=== PATIENT | male | born 1955 | race Caucasian/White ===

== ENCOUNTER → 2018-10-19 14:30 | Outpatient (CLI) | payer MEDICAID, SELFPAY ==
--- NOTE | 2018-10-19 14:32 | RAD_ITS ---
STUDY: X-RAY - ORBITS REASON FOR EXAM: Male, 63 years old. This study is being performed as a clearance examination for exclusion of orbital metal, prior to the performance of an MRI examination. TECHNIQUE: 2 view(s) of the orbits were obtained. COMPARISON: None. FINDINGS: Normal bilateral orbits without a metallic orbital foreign body. Normal visualized facial bones. Normal paranasal sinuses. The soft tissue structures are unremarkable. RAD/Orbits for Foreign Body IMPRESSION: No demonstrated metallic orbital foreign body. The patient is cleared for an MRI examination. Electronically Signed: Addison Godinez MD at 15:01 EST , Service support ,
--- NOTE | 2018-10-19 14:38 | MRI_ITS ---
STUDY: MRI LEFT SHOULDER REASON FOR EXAM: Male, 63 years old. Pain. Limited range of motion. TECHNIQUE: Standardized fat and water weighted pulse sequences were obtained in all 3 orthogonal planes. COMPARISON: None. FINDINGS: Tendinosis with thickening of the distal supraspinatus and partial thickness distal tendon tears, series 5 images 09/09 and . There is infraspinatus tendinosis with tendon thickening, but without a demonstrated tendon tear. Normal subscapularis tendon. Normal teres minor tendon. Normal supraspinatus muscle. Normal infraspinatus muscle. Normal subscapularis muscle. Normal teres minor muscle. There is a moderate volume joint effusion of the glenohumeral joint. 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 Normal humeral head and visualized proximal humerus. Normal biceps labral complex. Normal intracapsular long biceps tendon. There is tear of the superior labrum adjacent to the biceps anchor, series 4 images 06/10 through 08/10 Normal capsulo- ligamentous complex. Normal rotator interval. There is mild osteoarthritis of the acromioclavicular articulation. There is a Type II morphology (curved) acromion, with a neutral orientation. There is mild edema of the subacromial bursa, consistent with mild subacromial-subdeltoid bursitis. Normal visualized coracohumeral and coracoacromial ligaments. Normal quadrilateral space. Normal axillary space. Normal deltoid muscle. Normal trapezius muscle. MRI/Upper Ext Joint Only(Routine) IMPRESSION: Tendinosis with partial tearing of the supraspinatus. No full-thickness rotator cuff tear. SLAP lesion with tear of the superior labrum. Glenohumeral and acromioclavicular arthrosis. Joint effusion. Electronically Signed: Kendall Portillo MD at 15:47 EST , Service support ,
== END ==
PROVIDERS: Family Provider Family Medicine; PCP Family Medicine; Referring Provider Family Medicine; Visit Provider Family Medicine
DX: M25.512 Pain in left shoulder (principal)
CPT/HCPCS: 70030; 73221

== ENCOUNTER 2019-08-23 11:51 | Day surgery (SDC) | payer MEDICAID, SELFPAY ==
[2019-08-04 15:01] VITALS: BMI 25.3
--- NOTE | 2019-08-08 12:34 | HP_ITS ---
Intake Vital Signs 08/04/19 Body Mass Index (BMI) 25.3 08/04/19 Height 6 ft 1 in 08/04/19 Weight: 195 lb 08/04/19 Body Mass Index (BMI) 25.7 08/04/19 Blood Pressure 137/89 H 08/04/19 Blood Pressure Location Rt brachial 08/04/19 Blood Pressure Position Sitting Intake Visit Reasons: Rt Inguinal Hernia Yarn Conditioner Required: No Is patient in pain?: No Allergies No Known Allergies Allergy (Verified 08/04/19 14:58) Medications lovastatin 40 mg tablet 40 mg PO DAILY 11/04/18 [History Confirmed 11/04/18] PFSH Medical History Arthritis (Acute) Renal stones (Acute) Surgical History s/p penis surgery (Acute) Family History Mother Breast cancer Father Kidney disease Social History (Updated 08/08/19 @ 12:34 by Frederic Sharma MD) Smoking Status: Never smoker alcohol intake: never HPI HPI HPI: JULIETA LA, is a 64 M who presents to the office today for HPI HPI Surgical H&P: Yes HPI: JULIETA LA, is a 64 M who presents to the office today for Evaluation of a right inguinal hernia patient has noticed a bulge in his right inguinal areaHe has not had a lot of tenderness with it but it is becoming more noticeable. 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 He has no change in his bowel or bladder habits. ROS General General: No weight change, appetite, fatigue, colon cancer, breast cancer or weakness HEENT HEENT: No difficulty swallowing, eye injury, eye surgery, swollen glands or hoarseness Endo Endocrine: No thyroid disease, diabetes mellitus, thyroid cancer, Hair loss, heat intolerance or cold intolerance Skin Skin: No rash or changing moles Breast Breast: No left breast lump, right breast lump, nipple discharge, breast pain, abnormal mammogram, abnormal US or breast enlargement Musc Musculoskeletal: Yes arthritis; no back problems, rheumatoid arthritis, gout or joint pain Cardio Cardiovascular: No murmur, pacemaker, heart disease, atrial fibrillation, high blood pressure, heart attack, heart stent, palpitations, shortness of breat with exertion or chest pain Psych Psychiatric: No depression, anxiety or hearing voices Resp Respiratory: No shortness of breath, No sleep apnea, No cough, No COPD, No asthma, No emphysema, No wheezing Gastro Gastrointestinal: No abdominal pain, No nausea or vomiting, No diarrhea, No constipation, No blood in stool, No acid reflux, No hemorrhoids, No ulcers, No gallbladder problem, No black,tarry stools [place] Hematologic: No blood thinners, No blood disorders, No bleeding, No anemia, No blood clots Neuro Neurologic: No system reviewed and no additional complaints, except as docu, No as per HPI, No abnormal walking, No abnormal hearing, No abnormal movements, No abnormal speech, No behavioral changes, No burning sensations, No confusion, No seizure-like activity, No unsteadiness, No dizziness, No localized weakness, No frequent falls, No headache(s), No lack of coordination, No loss of vision, No memory loss, No numbness, No other visual disturbances, No radiating pain, No restless legs, No sensory deficit, No fainting, No tingling, No tremor(s), No weakness, No other Exam Const General: no acute distress, well developed, well hydrated Orientation: oriented to person, oriented to place, oriented to time [facility] Head: normocephalic, atraumatic Ears: external ears normal Mouth: moist mucous membranes Eyes Sclera: sclerae normal Pupils: normal by confrontation Neck Neck: no lymphadenopathy noted Neck mass: No Thyroid: thyroid normal, symmetrical Chest Chest palpation & inspection: normal inspection of the chest Breast Palpation: No nipple discharge Resp Effort & Inspection: normal respiratory effort Auscultation: clear to auscultation bilaterally Percussion: percussion normal Cardio Rate: regular rate Rhythm: regular rhythm Heart Sounds: no murmurs GI Palpation: soft, no hepatosplenomegaly, no masses, tender Rectal Exam: other Other: Reducible right anal hernia is identified. Rectal exam deferred. Extrem General: normal to inspection, no clubbing, cyanosis or edema Assessment & Plan Problems 1. Right inguinal hernia K40.90 Plan My plan is to perform a Robotic assisted laparoscopic right inguinal hernia repair with mesh. The planned surgical procedure was discussed extensively with the patient. The risks, benefits, anticipated outcomes and possible complication were mentioned. The patient understands that all hernia repair surgery has a chance of recurrence and/or chronic post-operative pain. My staff has also explained the procedure in understandable terms and the patient was given the option to take printed material concerning the planned procedure. The patient had the opportunity to ask questions concerning the planned procedure. The patient freely consents to the planned procedure. Coding Level of Care Code Off vis,new,level 3 Diagnoses Right inguinal hernia K40.90 08/08/19 1234 <Electronically signed by Frederic johnston MD> Date _ Frederic Sharma MD I have re-examined the patient. There are no clinical changes since date of exam.
--- NOTE | 2019-08-23 12:07 | EKG12_ITS ---
Test Reason : PRE OP Blood Pressure : / mmHG Vent. Rate : 067 BPM Atrial Rate : 067 BPM P-R Int : 170 ms QRS Dur : 108 ms QT Int : 410 ms P-R-T Axes : 033 090 038 degrees QTc Int : 433 ms Normal sinus rhythm Normal ECG No previous ECGs available Confirmed by ARGENTINA SILVA ([id number]), film editor RANDALL HINTON ([id number]) on 08/28/2019 10:42:42 AM Referred By: Argentina Sharma Confirmed By:ARGENTINA SILVA
[2019-08-23 12:21] VITALS: BP 141/93; PULSE 72; RESP 16; TEMP 36.7; O2SAT 97; BMI 26.0
[2019-08-23] MEDS: Lactated Ringers 1,000 ML 100 ML IV ×2 (12:27→12:29)
--- NOTE | 2019-08-23 14:18 | PCM.OPRPT ---
Problem List (1) Right inguinal hernia Status: Acute Report of Operation Date of Procedure: 08/23/19 Pre-Operative Diagnosis: Right inguinal hernia Post-Operative Diagnosis: Same Surgery/Procedure Performed:: Robotic assisted lap right inguinal hernia repair with mesh Type of Anesthesia:: General Anesthesiologist: Maurilio Lewis Estimated Blood Loss (mL): < 25 Description of Procedure: She was brought into the operating room. Placed in the supine position. Under excellent general trach intubation the abdomen was sterilely prepped and draped in usual fashion. Local was injected above the umbilicus dissection was carried down Blanco was used to grab the fascia varies needle was placed inside the abdomen the abdomen was insufflated to 15 torr. #8 trocar was placed without difficulty. Under direct visualization it was flank by 2 #8 trochars. The bed was placed in the headdown position rotated slightly to the left. Robot was then brought in and docked appropriately. I scored the peritoneum on the right dissected down to Viktor's ligament and then dissected further laterally. I dissected the cord and vessel structures free and then dissected further laterally. Placed a large 3D max mesh into the wound. I tacked it to Viktor's ligament with an 0 Vicryl suture. The mesh laid completely flat. Then starting laterally I used a V lock 3 oh and closed the peritoneum completely. I inspected the right side it looked good ileal inguinal nerve block was then performed on the right trochars were all removed under direct visualization fascia the umbilical port was closed with [id number] of 0 Vicryl skin incisions were closed with some particular stitches of 4-0 Monocryl Steri-Strips applied sterile dressings were applied and the patient tolerated the procedure well. - Admit VTE Documentation VTE Present on Admission: No VTE Mechan Device Prophylaxis: SCD's VTE Pharm Prophylaxis ordered?: No Reason prophylaxis not ordered:: Treatment Not Indicated
[2019-08-23] MEDS: Cefazolin 2 GM in 0.9% Normal Saline 100 ML IV (14:35)
--- NOTE | 2019-08-23 14:49 | PCM.DC.HER ---
Discharge Diet: Light diet - advance as tolerated Discharge Activity: Return to Normal Activity, May Drive - when you are no longer taking narcotic pain medications., May Shower - with the bandage in place 1-2 days after surgery. Lifting Restrictions: 20 pounds for 8 weeks. Additional Activity Instructions:: Climbing stairs is fine, walking is encouraged. Sitting in bed may be uncomfortable. Sitting up using your lateral muscles (sitting up sideways) is usually more comfortable. Do not drive, work heavy equipment of sign legal documents for 24 hours. If your hernia repair was an ingunial repair, you may have scrotal swelling, an ice pack and/or athletic support can provide more comfort. Pain medications may cause nausea, you should typically eat light foods as you take your pain medications. Pain medications may also cause constipation. If you have difficulty with this, discuss with your doctor. Call your doctor if your incision/area has: Continuous Slow Oozing, Sudden Increased Bleeding, Increased Pain/ Swelling, Increased Redness, Foul Smelling Discharge Call your doctor if you observe: Fever of 101 or Higher Suture Line Care: Avoid Pulling/Pushing, Avoid Pinching/Bending Additional Dressing/Incision Instructions:: Leave the operative bandage on for 2-3 days. When you remove the bandage, leave the steri-strips on place until your follow up appointment or they fall off. Allergies/Adverse Reactions: Allergies No Known Allergies Allergy (Verified 08/23/19 12:11) Medications to take at Discharge lovastatin 40 mg tablet 40 mg PO DAILY 11/04/18 Oxycodone HCl/Acetaminophen [Percocet 5/325] 1 - 2 tab PO Q4H PRN PRN 5 Days #15 tab 08/23/19 The following prescriptions were given: Oxycodone HCl/Acetaminophen [Percocet 5/325] 1 - 2 tab PO Q4H PRN PRN 5 Days #15 tab PRN Reason: Pain Transmission Status: Received by [id number] Primary Care Physician: Carlos Jurado MD [Primary Care Provider] - Test Results: Test results from this visit will be discussed in further detail at your follow-up appointment, if applicable. Please Follow Up With: Frederic Sharma MD - [phone] When: Plan to have a follow up appointment in 7 days. Call to schedule.
[2019-08-23] MEDS: Bupivacaine Mpf 0.5% 30 ML VIAL (16:00)
[2019-08-23 16:36] VITALS: BP 126/78; BP 141/93; PULSE 84; RESP 18; TEMP 36.3; O2SAT 93
[2019-08-23 16:45] VITALS: BP 141/93; BP 142/81; PULSE 82; RESP 18; O2SAT 95
[2019-08-23 17:00] VITALS: BP 134/92; BP 141/93; PULSE 73; RESP 18; O2SAT 95
[2019-08-23 17:08] VITALS: BP 141/93; BP 149/90; PULSE 77; RESP 18; TEMP 36.2; O2SAT 96
[2019-08-23 18:54] VITALS: BP 141/93; BP 150/89; PULSE 83; RESP 18; TEMP 36.5; O2SAT 100
== END 2019-08-23 18:55 | disposition home or self-care (01) ==
LOC: SDC 11:51 → AC 11:54
PROVIDERS: Family Provider Family Medicine; PCP Family Medicine; Referring Provider Surgery; Visit Provider Surgery
DX: K40.90 Unilateral inguinal hernia, without obstruction or gangrene, not specified as recurrent (principal); M19.90 Unspecified osteoarthritis, unspecified site; E78.00 Pure hypercholesterolemia, unspecified; Z87.442 Personal history of urinary calculi; Z79.899 Other long term (current) drug therapy
CPT/HCPCS: 49650; 93005; J7120; C1781; J2405